=== PATIENT | female | born 1935 | race Caucasian/White ===

== ENCOUNTER 2018-03-05 11:46 | Observation (INO) | payer MEDICARE, BC ==
[2018-03-05 12:24] LABS: #Basophils 0.1 thou/uL (0.0-0.2); #Eosinphils 0.4 thou/uL (0.0-0.7); #Lymphocytes 2.6 thou/uL (1.20-3.40); #Monocytes 0.5 thou/uL (0.11-0.59); #Neutrophils 3.9 thou/uL (1.40-6.50); %Basophils 0.9 % (0.0-1.0); %Lymphocytes 35.3 % (21.0-51.0); %Monocytes 6.2 % (0.0-10.0); %Neutrophils 52.6 % (42.0-75.0); Hemoglobin 15.6 g/dL (12.0-16.0); Mean Corpuscular Hemoglobin 31.5 pg (27.0-31.0); Mean Corpuscular Volume 92.5 fL (78.0-98.0); Mean Platelet Volume 7.7 fL (7.4-10.4); Platelet Count 203 thou/uL (130-400); RBC Distribution Width 12.3 % (11.5-14.5); Red Blood Cell (RBC) Count 4.95 mill/uL (4.20-5.40); White Blood Cell (WBC) Count 7.5 thou/uL (4.8-10.8)
[2018-03-05 12:49] LABS: ALT (SGPT) 16 U/L (8-55); AST (SGOT) 24 U/L (5-34); Albumin 4.2 g/dL (3.4-4.8); Alkaline Phosphatase 82 U/L (40-150); Anion Gap 14 mmol/L (10-20); BUN (Urea Nitrogen) 24 mg/dL (9.8-20.1); Bilirubin, Total 0.6 mg/dL (0.2-1.2); CK (CPK) 63 U/L (29-168); Calc. Creatinine Clearance 0 mL/min (70-130); Calcium 9.6 mg/dL (7.8-10.44); Carbon Dioxide 24 mmol/L (23-31); Chloride 107 mmol/L (98-107); Estimated GFR-MDRD 53; Globulin 3.6 g/dL (2.4-3.5); Glucose 109 mg/dL (83-110); Protein, Total 7.8 g/dL (6.0-8.3); Sodium 140 mmol/L (136-145); Troponin I Less than 0.010 ng/mL (< 0.028)
--- NOTE | 2018-03-05 13:12 | RAD ---
AP VIEW CHEST: Date: 03/05/18 INDICATION: History of chest pain. COMPARISON: PA and lateral chest dated 04/24/12. FINDINGS: Small focal eventration of the right hemidiaphragm. Mild cardiomegaly is stable. Vascular calcificati ons of aortic arch similar appearing. No definite pleural effusion or pneumothorax is evident. IMPRESSION: Stable cardiomegaly. No definite acute cardiopulmonary abnormality. POS: [facility]
[2018-03-05] MEDS ORDERED: Aspirin 325 MG TAB ONE (14:23)
[2018-03-05] MEDS ORDERED: Enoxaparin Sodium 100 MG/ML SYRINGE ONE (14:23)
--- NOTE | 2018-03-05 14:55 | PDOC.FPRHP ---
- History of Present Illness Chief Complaint: sent by PCP History of Present Illness: 82 yo F with HLD sent by PCP in [place]. Her doctor listened to her heart and got an EKG then told her to go to the hospital. Denies any chest pain or other pain at this time. Pt reports that she was admitted in [place] 1 week ago for chest sensation that felt "like indigestion." Pt reports being getting an EKG and stress test that all came back normal. She also described feeling bad at the store yesterday- she felt sweaty, nauseated, and tired so she decided to go home. She said she felt a chest "tightness" or "hollow feeling" yesterday and this morning. Pt admits to fatigue, occasional SOB, exercise intolerance, occasional constipation, and a diffuse feeling of weakness. She denied fevers/ chills, wt or appetite changes, recent illness, diarrhea. Pt reports having an irregular heart beat 2 or three years ago that was worked up, and that she saw a radio dispatcher at that time. Does not remember the doctors name. In the ED, she got an EKG which was normal. CBC and CMP wnl. Trops neg x 1. Admitted to tele obs. - Allergies/Adverse Reactions Allergies Allergy/AdvReac Type Severity Reaction Status Date / Time No Known Allergies Allergy Verified 03/05/18 15:26 - Home Medications Medication Instructions Recorded Confirmed Type Aspirin [Aspir-Low] 81 mg PO DAILY 03/05/18 03/05/18 History Lutein 20 mg PO DAILY 03/05/18 03/05/18 History Simvastatin [Zocor] 20 mg PO QPM 03/05/18 03/05/18 History Ubidecarenone [CoQ-10] 100 mg PO QPM 03/05/18 03/05/18 History Comments: Aspirin 81 mg PO once daily Lutein 20 mg PO once daily - for "halos" in her eyes Simvastatin 20 mg PO qhs -for HLD TNF 1 tablet daily qAM - for "halos" in her eyes Ubiquinone 1 ? PO daily qhs - for calf cramping with simvastatin pantoprazole 40 mg for GERD - History PMHx: HLD, GERD PSHx: cholecystectomy, bilat knee replacements FHx: Father of DE age 77, sister with DM, sister who of pancreatic cancer at age 77. Denies hx HTN. Social: 26 PY smoking hx, alcohol 1/month or less, denies drugs or other use. Says she used to live near [facility], and has three grown children. Denies ill contacts. - Review of Systems General: reports: fatigue. denies: fever/chills, weight/appetite/sleep changes , night sweats Eyes: denies: vision changes ENT: reports: nasal congestion, rhinorrhea Respiratory: reports: congestion, shortness of breath (occasional), exercise intolerance. denies: cough Cardiovascular: denies: chest pain, palpitation, edema, paroxysmal nocturnal dyspnea Gastrointestinal: reports: nausea, constipation (occasional). denies: vomiting , diarrhea, abdominal pain, GI bleeding Genitourinary: reports: incontinence (bladder). denies: dysuria, polyuria, discharge Skin: denies: rashes Musculoskeletal: reports: arthritis/arthralgias (fingers and neck). denies: pain Neurological: reports: weakness (overall feeling of being weaker than she used to be). denies: numbness, seizure Psychological: denies: anxiety, depression - Vital signs BP: 141/60 HR: 65 RR: 18 Tmax: 98.2 Pox: 99% on RA Wt: 122 kg - Physical Exam Constitutional: NAD, awake, alert and oriented, well developed HEENT: normocephalic and atraumatic, PERRLA, EOMI, conjunctiva clear, no scleral icterus, grossly normal hearing, MMM, oropharynx clear Neck: supple, no LAD Chest: no lesions Heart: normal S1/S2, no murmurs/rubs/gallops, pulses present, other (Regular rate, sometimes irregular rhythm (regularly irregular)) Lungs: CTAB, no respiratory distress, no wheezing, no retractions Abdomen: soft, non-tender, no masses/distention Musculoskeletal: normal structure, normal tone Skin: no rash/lesions Heme/Lymphatic: no unusual bruising or bleeding Psychiatric: normal mood and affect, good judgment and insight, intact recent and remote memory FMR H&P: Results - Labs Result Diagrams: 03/05/18 12:10 03/05/18 12:10 Lab results: WBC 7.5 thou/uL (4.8-10.8) 03/05/18 12:10 Hgb 15.6 g/dL (12.0-16.0) 03/05/18 12:10 Hct 45.8 % (36.0-47.0) 03/05/18 12:10 MCV 92.5 fL (78.0-98.0) 03/05/18 12:10 Plt Count 203 thou/uL (130-400) 03/05/18 12:10 Neutrophils % 52.6 % (42.0-75.0) 03/05/18 12:10 Sodium 140 mmol/L (136-145) 03/05/18 12:10 Potassium 5.0 mmol/L (3.5-5.1) 03/05/18 12:10 Chloride 107 mmol/L (98-107) 03/05/18 12:10 Carbon Dioxide 24 mmol/L (23-31) 03/05/18 12:10 BUN 24 mg/dL (9.8-20.1) H 03/05/18 12:10 Creatinine 1.00 mg/dL (0.6-1.1) 03/05/18 12:10 Glucose 109 mg/dL (83-110) 03/05/18 12:10 Calcium 9.6 mg/dL (7.8-10.44) 03/05/18 12:10 Total Bilirubin 0.6 mg/dL (0.2-1.2) 03/05/18 12:10 AST 24 U/L (5-34) 03/05/18 12:10 ALT 16 U/L (8-55) 03/05/18 12:10 Alkaline Phosphatase 82 U/L (40-150) 03/05/18 12:10 Creatine Kinase 63 U/L (29-168) 03/05/18 12:10 CK-MB (CK-2) 2.0 ng/mL (0-6.6) 03/05/18 12:10 B-Natriuretic Peptide 58.9 pg/mL (0-100) 03/05/18 12:10 Serum Total Protein 7.8 g/dL (6.0-8.3) 03/05/18 12:10 Albumin 4.2 g/dL (3.4-4.8) 03/05/18 12:10 - EKG Interpretation EKG: normal rate and rhythm, with PAC and PVC - Radiology Interpretation Chest x-ray Status: report reviewed by me (stable cardiomegaly. No acute cardiopulmonary abnormalities.) Additional comment: stable cardiomegaly, no acute cardiopulmonary abnormalities. FMR H&P: A/P - Problem List (1) GERD (gastroesophageal reflux disease) Current Visit: Yes Status: Acute Code(s): K21.9 - GASTRO-ESOPHAGEAL REFLUX DISEASE WITHOUT ESOPHAGITIS (2) HLD (hyperlipidemia) Current Visit: Yes Status: Acute Code(s): E78.5 - HYPERLIPIDEMIA, UNSPECIFIED - Plan Paroxysmal Atrial Fibrillation In triage tropx1 was negative, CBC and BMP were normal. CXR showed cardiomegaly , with no acute cardiopulmonary abnormalities. EKG in the ED was normal, showing no afib or aflutter. [id number] score 3, indicating moderate to high need for anti-coagulation. HASBLED score 2, indicating moderate risk for major bleeding. She is able to perform all ADLs on her own, and no hx of falls. -Obtain records from [facility] for cardiac work up done last week -Admit to telemetry obs. Consult cardiology, appreciate recs. HLD -Continue simvastatin GERD -Continue on protonix Code status: full code FMR H&P: Upper Level - Pertinent history 82F with recent hospitalization for CP r/o ACS at [facility] in [place] approximately two weeks ago. Work up negative at that time including negative stress test. Seen by her PCP in [place] today and found to be in atrial fibrillation with a rate of 110 bpm. Asymptomatic at that time but sent to [facility] ER for triage and admission. She denies any CP, palpitations, lower extremity edema, dizziness, syncope. However, when questioned further she endorsed brief spells of NINO, diaphoresis, and light headedness that last for a couple minutes then resolve with rest. Never associated with chest pain. Patient does not have a radio dispatcher and is otherwise very healthy. ED: ASA 325mg, Lovenox 1mg/kg - Pertinent findings BP: 141/60 HR: 65 RR: 18 Tmax: 98.2 Pox: 99% on RA Wt: 122 kg Gen: A&Ox4; no acute distress HEENT: NC/AT; MMM CV: RRR; no murmurs Pulm: CTA-B Extremities: no lower extremity edema; pedal pulses intact Psych: appropriate EKG at ED: NSR with occasional PVCs Troponin negative x 1 - Plan Date/Time: 03/05/18 8336 1. Paroxysmal Afib: confirmed EKG from PCP office showing afib with a rate of 110, asymptomatic at that time. Patient received no medication and was found to be in NSR upon presentation to [facility]. Will request records from [facility] for recent cardiac workup. Trend troponins with repeat EKGs. Initial troponin was negative. CBC and CMP normal. BNP appropriate. [id number] score of 3 indicating need for anticoagulation. Patient with no history of falls and no gross contraindication to anticoagulation. Likely consult Cardiology for further recommendations pending review of outside records. 2. HLD: continue simvastatin, anticipate FLP checked in [place]. No need for repeat at this time. 3. GERD: continue PPI Code status: full I, Noah Amanda, have evaluated this patient and agree with findings/plan as outlined by senior internet sales consultant resident. Pertinent changes/additions are listed here. Attending Addendum - Attending Addendum Date/Time: 03/05/18 [id number] I personally evaluated the patient and discussed the management with Dr. Chad Benson I agree with the History, Examination, Assessment and Plan documented above with any addition or exceptions noted below- Briefly this is a 82 yo F with HLD sent by PCP due to irregular heart rate on auscultation and EKG showed A-fib. Denies any chest pain or other pain at this time. Recently hospitalized in [place] due to chest pain and had stres test which was negative per patient and told it was GERD. She also described feeling bad at the store yesterday- she felt sweaty, nauseated, and tired so she decided to go home. She said she felt a chest "tightness" or "hollow feeling" yesterday and this morning. PMH/PSH /All/Meds reviewed and agree with resident's documentation. Afebrile VSS. Exam repeated by me and agree with resident's findings. EKG ([place])- A-fib/ flutter with RVR. EKG- ()- NSR. Troponin- negative x 2. A/P: 1) Paroxysmal A- fib/flutter- continue anticoagulation; currently in NSR; continue to monitor. Will obtain echo.
[2018-03-05 15:32] VITALS: BMI 40.8
[2018-03-05 16:06] LABS: Troponin I 0.015 ng/mL (< 0.028)
[2018-03-05] MEDS ORDERED: Enoxaparin Sodium 40 MG/0.4 ML SYRINGE SC SCH (16:15)
[2018-03-05 19:20] LABS: Troponin I Less than 0.010 ng/mL (< 0.028)
[2018-03-05] MEDS: Ubidecarenone 50 MG CAP PO SCH (20:35)
[2018-03-05] MEDS: Famotidine 20 MG TAB PO SCH (20:35)
[2018-03-05] MEDS: Simvastatin 20 MG TAB PO SCH (20:35)
--- NOTE | 2018-03-06 06:15 | PDOC.FM ---
- Subjective Subjective: 82 yo F with new onset paroxysmal Afib. No complaints overnight, pt remained in sinus rhythm overnight. [facility] - Objective Vital Signs & Weight: Vital Signs (12 hours) Temp Pulse Resp BP Pulse Ox 03/06/18 04:14 97.4 F L 65 16 131/59 L 95 03/05/18 19:55 97.6 F 75 16 03/05/18 19:37 97.6 F 75 16 117/63 93 L 03/05/18 19:30 93 L Weight Weight 120.746 kg I&O: 03/04/18 03/05/18 03/06/18 06:59 06:59 06:59 Intake Total 830 Balance 830 Result Diagrams: 03/05/18 12:10 03/05/18 12:10 <Katey Benson - Last Filed: 03/06/18 08:23> - Objective Vital Signs & Weight: Vital Signs (12 hours) Temp Pulse Resp BP Pulse Ox 03/06/18 15:25 98.0 F 71 16 111/59 L 92 L 03/06/18 11:20 99 F 69 18 128/60 92 L 03/06/18 08:00 98.3 F 71 20 03/06/18 07:23 98.3 F 71 20 116/58 L 94 L Weight Weight 120.746 kg I&O: 03/05/18 03/06/18 03/07/18 06:59 06:59 06:59 Intake Total 830 Balance 830 Result Diagrams: 03/05/18 12:10 03/05/18 12:10 <Parag Meyers - Last Filed: 03/06/18 17:06> Phys Exam - Physical Examination Constitutional: NAD Respiratory: no wheezing, no rales, no rhonchi, clear to auscultation bilateral Cardiovascular: RRR, no significant murmur, no rub Gastrointestinal: soft, non-tender Musculoskeletal: no edema Psychiatric: normal affect, A&O x 3 <Katey Benson - Last Filed: 03/06/18 08:23> Dx/Plan (1) GERD (gastroesophageal reflux disease) Code(s): K21.9 - GASTRO-ESOPHAGEAL REFLUX DISEASE WITHOUT ESOPHAGITIS Status: Acute (2) HLD (hyperlipidemia) Code(s): E78.5 - HYPERLIPIDEMIA, UNSPECIFIED Status: Acute (3) Paroxysmal atrial fibrillation Code(s): I48.0 - PAROXYSMAL ATRIAL FIBRILLATION Status: Acute - Plan Plan: 1. Paroxysmal Afib: confirmed EKG from PCP office showing afib with a rate of 110, asymptomatic at that time. Patient received no medication and was found to be in NSR upon presentation to [facility]. Will request records from [facility] for recent cardiac workup. Trend troponins with repeat EKGs. CBC and CMP normal. BNP appropriate. [id number] score of 3 indicating need for anticoagulation. Patient with no history of falls and no gross contraindication to anticoagulation. Consult Cardiology for further recommendations pending review of outside records. -Admitted in Tele Obs, Remained in sinus overnight, Trop neg x3, CK nl. -ECHO today -Consult cardiology -Awaiting records from [facility] in [place] 2. HLD: continue simvastatin, anticipate FLP checked in [place]. No need for repeat at this time. 3. GERD: continue PPI Code status: full <Katey Benson - Last Filed: 03/06/18 08:23> Attending Addendum - Attending Addendum Date/Time: 03/06/18 1702 I personally evaluated the patient and discussed the management with Dr. Chad Benson. I agree with the History, Examination, Assessment and Plan documented above with any addition or exceptions noted below. She feels well. Denies CP, dyspnea or palpitations. Lungs: CTA, Cor: RRR, no murmur. No edema. Monitor shows NSR Rate 87. Has been started on Apixaban and Metoprol Succinate by Dr. Collins. Echocardiogram has been taken, results pending. Possible discharge if ECHO ok. MD Jacinto. <Parag Meyers - Last Filed: 03/06/18 17:06>
[2018-03-06] MEDS: Famotidine 20 MG TAB PO SCH ×2 (09:23→20:28)
[2018-03-06] MEDS: Aspirin 81 mg Enteric Coated Tablet PO SCH (09:23)
[2018-03-06] MEDS ORDERED: Enoxaparin Sodium 120 MG/0.8 ML SYRINGE SC SCH (10:30)
[2018-03-06 17:05] LABS: Hemoglobin 14.9 g/dL (12.0-16.0); Platelet Count 192 thou/uL (130-400)
[2018-03-06] MEDS: Apixaban 5 MG TAB PO SCH (20:28)
[2018-03-06] MEDS: Simvastatin 20 MG TAB PO SCH (20:28)
[2018-03-06] MEDS: Ubidecarenone 50 MG CAP PO SCH (20:29)
--- NOTE | 2018-03-07 05:39 | PDOC.FM ---
- Subjective Subjective: 82 yo F here for paroxysmal afib. Cardiology saw yesterday, added apixiban and metoprolol. Pt did well overnight with no complaints. - Objective Vital Signs & Weight: Vital Signs (12 hours) Temp Pulse Resp BP BP Pulse Ox 03/07/18 04:01 97.4 F L 65 18 125/68 95 03/06/18 20:00 98.2 F 62 20 03/06/18 19:09 98.2 F 62 20 141/61 H 94 L Weight Weight 120.746 kg I&O: 03/05/18 03/06/18 03/07/18 06:59 06:59 06:59 Intake Total 830 1030 Balance 830 1030 Result Diagrams: 03/06/18 16:55 03/06/18 16:55 <Katey Benson - Last Filed: 03/07/18 07:47> - Objective Vital Signs & Weight: Vital Signs (12 hours) Temp Pulse Resp BP Pulse Ox 03/07/18 11:00 97.4 F L 63 18 106/66 91 L 03/07/18 07:47 97.4 F L 65 18 03/07/18 07:29 97.7 F 61 18 124/59 L 93 L Weight Weight 120.746 kg I&O: 03/06/18 03/07/18 03/08/18 06:59 06:59 06:59 Intake Total 830 1030 Balance 830 1030 Result Diagrams: 03/06/18 16:55 03/06/18 16:55 <Parag Meyers - Last Filed: 03/07/18 17:05> Phys Exam - Physical Examination Constitutional: NAD (sleeping on exam) Respiratory: no wheezing, no rales, no rhonchi, clear to auscultation bilateral Cardiovascular: RRR, no significant murmur, no rub Gastrointestinal: soft Musculoskeletal: no edema, pulses present <Katey Benson - Last Filed: 03/07/18 07:47> Dx/Plan (1) GERD (gastroesophageal reflux disease) Code(s): K21.9 - GASTRO-ESOPHAGEAL REFLUX DISEASE WITHOUT ESOPHAGITIS Status: Acute (2) HLD (hyperlipidemia) Code(s): E78.5 - HYPERLIPIDEMIA, UNSPECIFIED Status: Acute (3) Paroxysmal atrial fibrillation Code(s): I48.0 - PAROXYSMAL ATRIAL FIBRILLATION Status: Acute - Plan Plan: 1. Paroxysmal Afib: confirmed EKG from PCP office showing afib with a rate of 110, asymptomatic at that time. Patient received no medication and was found to be in NSR upon presentation to [facility]. Will request records from [facility] for recent cardiac workup. Trend troponins with repeat EKGs. CBC and CMP normal. BNP appropriate. [id number] score of 3 indicating need for anticoagulation. Patient with no history of falls and no gross contraindication to anticoagulation. Consult Cardiology for further recommendations pending. -Admitted in Tele Obs, Trop neg x3, CK nl. -Records from [facility]: nl EKG, negative stress test -ECHO: pending -Consult cardiology, appreciate recs. -apixiban 5 mg and metoprolol succinate 50 mg added 03/06. -No more episodes of afib/flutter since starting metoprolol. Sinus overnight. -TSH: normal at 3.65 2. HLD: continue simvastatin. 3. GERD: continue PPI Code status: full code Diet: Heart Healthy <Katey Benson - Last Filed: 03/07/18 07:47> Attending Addendum - Attending Addendum Date/Time: 03/07/18 9412 I personally evaluated the patient and discussed the management with Dr. Chad Benson. I agree with the History, Examination, Assessment and Plan documented above with any addition or exceptions noted below. Ms. Mcguire feels well and ready to go home. Lungs: CTA, Cor: RRR. Abd: WNL. Ext : No edema. Has remained in NSR overnight. Echo is resulted. WNL with mild Left atrial enlargement. EF 50-55% Mild TR. Stable for discharge to follow up with her PCP at the [facility]. Home on Metoprolol Succinate 50 mg daily, and Apixaban 5 mg BiD, Crestor 20 mg daily, . Symptoms for which to seek medical attention discussed. [facility] <Parag Meyers - Last Filed: 03/07/18 17:05>
[2018-03-07 07:57] VITALS: TEMP 97.4
[2018-03-07] MEDS: Apixaban 5 MG TAB PO SCH (10:02)
[2018-03-07] MEDS: Aspirin 81 mg Enteric Coated Tablet PO SCH (10:02)
[2018-03-07] MEDS: Famotidine 20 MG TAB PO SCH (10:02)
[2018-03-07 11:52] VITALS: BP 106/66
[2018-03-07] MEDS: (Lutein [Lutein] 20 MG) PO SCH ×2 (12:12→12:18)
--- NOTE | 2018-03-07 22:27 | DIS-2 ---
DATE OF ADMISSION: 03/05/2018 DATE OF DISCHARGE: 03/07/2008 RESIDENT: Katey Benson MD ADMITTING ATTENDING: Parag Meyers M.D. DISCHARGE ATTENDING: Parag Meyers M.D. CONSULTS: Cardiology, 03/06/2018 Dr. Collins. PROCEDURES: Chest x-ray on 03/05/2018, impression stable cardiomegaly. No definite acute cardiopulmonary abnormality. Echocardiogram on 03/07/2018. SUMMARY: Technically limited study. Ejection fraction is visually estimated at 50%-55%. Mildly dilated left atrium. Left ventricular size is normal. Mild tricuspid regurgitation. PRIMARY DIAGNOSIS: Paroxysmal atrial fibrillation. SECONDARY DIAGNOSES: 1. Hyperlipidemia. 2. Gastroesophageal reflux disease. DISCHARGE MEDICATIONS: 1. CoQ10 100 mg capsule p.o. q.p.m. 2. Simvastatin 20 mg tabs p.o. q.p.m. 3. Lutein 20 mg p.o. daily. 5. Aspirin 81 mg p.o. daily. 6. Apixaban 5 mg p.o. b.i.d. 7. Metoprolol succinate 50 mg p.o. daily. DISCONTINUED MEDICATIONS: None. HISTORY OF PRESENT ILLNESS AND HOSPITAL COURSE: The patient is an 82-year-old female with hyperlipidemia, sent by PCP in [place]. Her PCP got an EKG in clinic, which showed atrial fibrillation changes and she was sent to the hospital. Patient denied any chest pain or any other pain. She did describe feeling "bad" at the store yesterday: she felt sweaty, nauseated and tired and so she decided to go home. She said she also has felt chest tightness or "hollow" feeling in her chest yesterday and this morning. Patient admitted to fatigue, occasional shortness of breath, exercise intolerance, occasional constipation and a diffuse feeling of weakness. She denied fever, chills, weight or appetite changes, recent illness or diarrhea. The patient reported a recent admission to [facility] 1 week prior for a cardiac workup for a chest sensation that felt like indigestion. Patient reported that an EKG and a stress test at that time that came back normal. Patient reports having an irregular heartbeat "2-3 years ago" that was worked up and at that time she saw a car bracer. She did not remember the doctor's name. In the ED, an EKG was normal. The EKG from her PCP's office was requested to compare, and that EKG showed atrial fibrillation. Records from [facility] were requested. Her CBC and CMP were within normal limits. Her trops were negative. She was admitted to telemetry obs. Her records at [facility] showed a normal EKG and a negative stress test. Cardiology was consulted and she was given apixaban 5 mg and metoprolol succinate 50 mg. After she started the metoprolol, she had no more episodes of atrial fibrillation or flutter. She remained in sinus. Her TSH was also found to be normal at 3.65. She was discharged to home. DISPOSITION: Stable. DISCHARGE INSTRUCTIONS: 1. Location: Home. 2. Diet: Heart healthy. 3. Activity: As tolerated. 4. Followup: Follow up with car bracer in 1 week. Follow up with PCP in 1- 2 weeks. BONNIE
--- NOTE | 2018-03-07 23:32 | EKG ---
Test Reason : Blood Pressure : / mmHG Vent. Rate : 073 BPM Atrial Rate : 073 BPM P-R Int : 164 ms QRS Dur : 092 ms QT Int : 394 ms P-R-T Axes : 051 -13 054 degrees QTc Int : 434 ms Sinus rhythm with occasional Premature ventricular complexes and Premature atrial complexes Inferior infarct , age undetermined Abnormal ECG Confirmed by NICOLE YANCEY, DAVIDE Dill ([id number]), material expeditor STEVEN GIBBONS ([id number]) on 03/07/2018 11:32:09 PM Referred By: Confirmed By:DAVIDE RIVERA MD
== END 2018-03-07 13:09 | disposition home or self-care (01) ==
LOC: ERS 11:46 → 2SW 13:30
PROVIDERS: ADMIT Family Medicine; ATTEND Family Medicine
DX: I48.0 Paroxysmal atrial fibrillation (principal); E78.5 Hyperlipidemia, unspecified; K21.9 Gastro-esophageal reflux disease without esophagitis; Z79.82 Long term (current) use of aspirin; Z79.899 Other long term (current) drug therapy
CPT/HCPCS: 71045; 82550; 82553; 82565; 83880; 84484 ×2; 85014; 85018; 85049; 93005; 93306; 96372 ×2; 99285; G0378; 36415; 80053; 84443; 85025; J1650

== ENCOUNTER 2019-08-25 11:34 | Inpatient (IN) | payer MEDICARE, BC ==
--- NOTE | 2019-08-25 12:20 | RAD ---
PORTABLE CHEST: Date: 08/25/2019 PROVIDED CLINICAL HISTORY: Chest pain. FINDINGS: Comparison with 03/05/2018. Cardiac and mediastinal silhouette is within normal limits. Vascular calcification involves the aorti c arch. No focal consolidation, pleural fluid, or pneumothorax apparent. IMPRESSION: No evidence for an acute cardiopulmonary process. POS: [facility]
[2019-08-25 12:21] LABS: #Eosinphils 0.3 thou/uL (0.0-0.7); #Lymphocytes 0.9 thou/uL (1.20-3.40); %Basophils 0.1 % (0.0-1.0); %Eosinophils 1.4 % (0.0-10.0); %Lymphocytes 5.2 % (21.0-51.0); %Monocytes 5.4 % (0.0-10.0); Hemoglobin 16.1 g/dL (12.0-16.0); Mean Corpuscular HGB CONC 31.7 g/dL (32.0-36.0); Mean Corpuscular Hemoglobin 29.9 pg (27.0-31.0); Mean Corpuscular Volume 94.3 fL (78.0-98.0); Mean Platelet Volume 7.9 fL (7.4-10.4); Platelet Count 182 thou/uL (130-400); RBC Distribution Width 13.2 % (11.5-14.5); White Blood Cell (WBC) Count 18.2 thou/uL (4.8-10.8)
[2019-08-25 12:27] LABS: INR-International Normal Ratio 1.6; PTT 32.5 SEC (22.9-36.1); Prothrombin Time 18.7 SEC (12.0-14.7)
[2019-08-25] MEDS ORDERED: Diltiazem HCl 125 MG, Admixture Fee 1 EACH in Sodium Chloride 0.9% 100 ML IVPB SCH (12:30)
[2019-08-25 12:46] LABS: ALT (SGPT) 26 U/L (8-55); AST (SGOT) 15 U/L (5-34); Albumin 3.2 g/dL (3.4-4.8); Alkaline Phosphatase 74 U/L (40-110); Anion Gap 14 mmol/L (10-20); BUN (Urea Nitrogen) 26 mg/dL (9.8-20.1); Bilirubin, Total 1.5 mg/dL (0.2-1.2); Calc. Creatinine Clearance 0 mL/min (70-130); Calcium 8.5 mg/dL (7.8-10.44); Carbon Dioxide 20 mmol/L (23-31); Chloride 103 mmol/L (98-107); Estimated GFR-MDRD 37; Globulin 2.9 g/dL (2.4-3.5); Glucose 120 mg/dL (83-110); Potassium 4.1 mmol/L (3.5-5.1); Protein, Total 6.1 g/dL (6.0-8.3); Sodium 133 mmol/L (136-145)
[2019-08-25] MEDS ORDERED: Bisacodyl 5 MG TAB PO PRN (13:53)
[2019-08-25] MEDS ORDERED: HYDROcodone/Acetaminophen 5/325 mg Tablet PO PRN (13:53)
[2019-08-25] MEDS ORDERED: Ondansetron PF 4 MG/2 ML Vial IVP PRN (13:53)
[2019-08-25] MEDS ORDERED: HYDROcodone/Acetaminophen 7.5/325 mg Tablet PO PRN (13:53)
[2019-08-25] MEDS ORDERED: Calcium Carbonate 500 MG ChewTAB PO PRN (13:53)
[2019-08-25] MEDS ORDERED: Senokot S 8.6-50 MG TAB PO PRN (13:53)
[2019-08-25] MEDS ORDERED: Ondansetron ODT 4 MG TAB PO PRN (13:53)
[2019-08-25] MEDS ORDERED: Acetaminophen 325 MG TAB PO PRN (13:53)
[2019-08-25 16:33] LABS: Bacteria/HPF 2+ HPF (None Seen); Bilirubin Negative (Negative); Blood, Urine 2+ (Negative); Clarity Turbid (Clear); Glucose, Urine (Dipstick) Normal (Negative); Leukocyte 500 Leu/uL (Negative); Nitrite Negative (Negative); Protein, Urine (Dipstick) 70 mg/dL (Neg-Trace); RBC/HPF 21-50 HPF (0-3); Transitional Epithelial 0-3 HPF (None Seen); Urobilinogen 3 mg/dL (Less than 2); WBC/HPF Greater than 50 HPF (0-3)
[2019-08-25 17:17] LABS: Troponin I 0.065 ng/mL (< 0.028)
[2019-08-25] MEDS ORDERED: diphenhydrAMINE 25 MG CAP PO PRN (18:39)
[2019-08-25] MEDS ORDERED: Melatonin 3 MG TAB PO PRN (18:39)
[2019-08-25] MEDS ORDERED: Docusate 100 MG CAP PO PRN (18:39)
[2019-08-25] MEDS ORDERED: Labetalol HCl 100 MG/20 ML VIAL SLOW IVP PRN (18:39)
--- NOTE | 2019-08-25 18:43 | PDOC.HHP ---
Hospitalist HPI - History of Present Illness Sepsis History of Present Illness: 84-year-old female with past medical history of atrial fibrillation, hypertension, hyperlipidemia and osteoarthritis presents with severe sepsis. Patient with multiple complaints including general malaise, cough with productive sputum, diarrhea, and urinary frequency. Patient was recently hospitalized in [place] where she was on vacation and she was diagnosed with RSV virus and urinary tract infection. Patient was stabilized and sent home from the hospital only a few days ago. Since then patient was sent home on oral antibiotics however she has forgotten to take these antibiotics. Patient with urine analysis that again demonstrates acute urinary tract infection. Patient identified to have atrial fibrillation with rapid ventricular response and initially require diltiazem drip, this drip was titrated off still in the emergency department and the patient heart rate varying between 80 and 113 bpm off the drip. Patient has been compliant on her regular cardiac medications and she is able to tell me she took her Eliquis and diltiazem this a.m. Patient's family at bedside are able to aid in history in a state that she was confused this a.m. however this has resolved since arrival to the hospital. Patient is alert to self, she knows she is in hospital, she knows the year, and she knows the situation. Patient admitted to medical unit telemetry for close management. Cardiology consultation requested. Hospitalist ROS - Review of Systems All other systems reviewed; all pertinent +/- noted in HPI/Subj Hospitalist History - Past Medical History Source: patient, family, old records Cardiac: reports: AFIB, HTN, Hyperlipidemia Pulmonary: reports: high cholesterol, hypertension Renal/: reports: UTI - Past Surgical History Past Surgical History: reports: Other - Family History Family History: reports: hypertension - Social History Smoking Status: Unknown if ever smoked Alcohol: reports: None Drugs: reports: none Living Situation: With Family Domestic Violence: Negative Activity level: independent ambulation - Exam General Appearance: NAD, awake alert Eye: PERRL ENT: normocephalic atraumatic, moist mucosa Neck: supple, symmetric, no lymphadenopathy Heart: no murmur, no gallops, no rubs, irregular Respiratory: CTAB, no wheezes, no rales, no ronchi Gastrointestinal: soft, non-tender, no guarding, no rigidity Extremities: 1+ LE edema Skin: no lesions, no rashes Neurological: cranial nerve grossly intact, no focal deficits Musculoskeletal: generalized weakness Psychiatric: normal affect, normal behavior, A&O x 3 Hospitalist Results - Labs Result Diagrams: 08/25/19 12:06 08/25/19 12:06 Lab results: WBC 18.2 thou/uL (4.8-10.8) H 08/25/19 12:06 Hgb 16.1 g/dL (12.0-16.0) H 08/25/19 12:06 Hct 50.9 % (36.0-47.0) H 08/25/19 12:06 MCV 94.3 fL (78.0-98.0) 08/25/19 12:06 Plt Count 182 thou/uL (130-400) 08/25/19 12:06 Neutrophils % 88.0 % (42.0-75.0) H 08/25/19 12:06 Sodium 133 mmol/L (136-145) L 08/25/19 12:06 Potassium 4.1 mmol/L (3.5-5.1) 08/25/19 12:06 Chloride 103 mmol/L (98-107) 08/25/19 12:06 Carbon Dioxide 20 mmol/L (23-31) L 08/25/19 12:06 BUN 26 mg/dL (9.8-20.1) H 08/25/19 12:06 Creatinine 1.35 mg/dL (0.6-1.1) H 08/25/19 12:06 Glucose 120 mg/dL (83-110) H 08/25/19 12:06 Calcium 8.5 mg/dL (7.8-10.44) 08/25/19 12:06 Total Bilirubin 1.5 mg/dL (0.2-1.2) H 08/25/19 12:06 AST 15 U/L (5-34) 08/25/19 12:06 ALT 26 U/L (8-55) 08/25/19 12:06 Alkaline Phosphatase 74 U/L (40-110) 08/25/19 12:06 Troponin I 0.065 ng/mL (< 0.028) H 08/25/19 16:49 Serum Total Protein 6.1 g/dL (6.0-8.3) 08/25/19 12:06 Albumin 3.2 g/dL (3.4-4.8) L 08/25/19 12:06 Urine Ketones Negative mg/dL (Negative) 08/25/19 16:17 Urine Blood 2+ (Negative) A 08/25/19 16:17 Urine Nitrite Negative (Negative) 08/25/19 16:17 Ur Leukocyte Esterase 500 Martha/uL (Negative) A 08/25/19 16:17 Urine RBC 21-50 HPF (0-3) A 08/25/19 16:17 Urine WBC Greater than 50 HPF (0-3) A 08/25/19 16:17 Ur Squamous Epith Cells 7-10 HPF (0-3) A 08/25/19 16:17 Urine Bacteria 2+ HPF (None Seen) A 08/25/19 16:17 - Radiology Interpretation Chest x-ray Status: image reviewed by ga Hospitalist H&P A/P - Problem (1) Severe sepsis Code(s): A41.9 - SEPSIS, UNSPECIFIED ORGANISM; R65.20 - SEVERE SEPSIS WITHOUT SEPTIC SHOCK Status: Acute (2) Atrial fibrillation with RVR Code(s): I48.91 - UNSPECIFIED ATRIAL FIBRILLATION Status: Acute (3) Cough Code(s): R05 - COUGH Status: Acute (4) Shortness of breath Code(s): R06.02 - SHORTNESS OF BREATH Status: Acute (5) UTI (urinary tract infection) Status: Acute (6) HTN (hypertension) Code(s): I10 - ESSENTIAL (PRIMARY) HYPERTENSION Status: Acute (7) GERD (gastroesophageal reflux disease) Code(s): K21.9 - GASTRO-ESOPHAGEAL REFLUX DISEASE WITHOUT ESOPHAGITIS Status: Acute (8) HLD (hyperlipidemia) Code(s): E78.5 - HYPERLIPIDEMIA, UNSPECIFIED Status: Acute (9) Paroxysmal atrial fibrillation Code(s): I48.0 - PAROXYSMAL ATRIAL FIBRILLATION Status: Acute - Plan Plan: Plan: admit to medical unit with telemetry diltiazem drip as needed to maintain heart rate less than 110 bpm oral anticoagulation with Eliquis blood pressure normalized with IV fluid resuscitation severe sepsis diagnosed on admission urinary tract infection, failed outpatient medical therapy start IV antibiotics urinary analysis with urinary tract infection urine culture, de-escalate to culture and sensitivity as able breathing treatments as needed for wheezing or shortness of breath recent RSV infection supplemental oxygen to maintain O2 saturation greater than 88% continue other home medications as able blood sugar control blood pressure control G.I. prophylaxis DVT prophylaxis
[2019-08-25 20:20] VITALS: BMI 41.2
[2019-08-25] MEDS: cefTRIAXone\\ROCEPHIN 2 GM in Sodium Chloride 0.9% 100 ML IVPB SCH (20:54)
[2019-08-25] MEDS: Atorvastatin Calcium 10 MG TAB PO SCH (20:55)
[2019-08-25] MEDS: Apixaban 5 MG TAB PO SCH (20:55)
[2019-08-25] MEDS: Ubidecarenone 50 MG CAP PO SCH (20:55)
[2019-08-25] MEDS ORDERED: Famotidine/PF 20 mg/2ml Vial SLOW IVP SCH (21:00)
[2019-08-25 21:05] LABS: Troponin I 0.028 ng/mL (< 0.028)
[2019-08-26 05:11] LABS: Anion Gap 15 mmol/L (10-20); BUN (Urea Nitrogen) 29 mg/dL (9.8-20.1); Calc. Creatinine Clearance 71 mL/min (70-130); Calcium 8.2 mg/dL (7.8-10.44); Carbon Dioxide 19 mmol/L (23-31); Chloride 104 mmol/L (98-107); Estimated GFR-MDRD 45; Glucose 114 mg/dL (83-110); Potassium 3.7 mmol/L (3.5-5.1); Sodium 134 mmol/L (136-145)
[2019-08-26 05:19] LABS: Hemoglobin 15.1 g/dL (12.0-16.0); Mean Corpuscular HGB CONC 32.8 g/dL (32.0-36.0); Mean Corpuscular Hemoglobin 31.1 pg (27.0-31.0); Mean Corpuscular Volume 94.8 fL (78.0-98.0); Mean Platelet Volume 8.9 fL (7.4-10.4); Platelet Count 178 thou/uL (130-400); RBC Distribution Width 13.2 % (11.5-14.5); Red Blood Cell (RBC) Count 4.85 mill/uL (4.20-5.40); White Blood Cell (WBC) Count 29.7 thou/uL (4.8-10.8)
[2019-08-26 05:54] LABS: Band 22 % (5-11); Eosinophils 2 % (0-10); Lymphocytes 3 % (21-51); MDiff Complete? YES; Neutrophil 73 % (42-75)
[2019-08-26] MEDS ORDERED: LUTEIN 20 MG PO SCH (09:00)
--- NOTE | 2019-08-26 09:02 | CT ---
CT OF THE ABDOMEN AND PELVIS WITHOUT IV CONTRAST INDICATION: History of diarrhea COMPARISON: None FINDINGS: This examination is limited for the evaluation of solid organs and vascular structures due to the lac k of intravenous contrast. ABDOMEN: Lung bases: Clear Liver: There are multiple suspected cysts involving the liver. The largest measures 5.8 cm within the lateral left hepatic lobe. Gallbladder: Surgically absent. There is a 9.5 mm calcification seen adjacent to the jose hepatis w hich may reflect a dystrophic calcification. This does not appear to be a calcification in the region of the common bile duct. Pancreas: Normal. Adrenal glands: Normal. Spleen: Normal. Kidneys and ureters: There are bilateral renal cysts. The largest is seen involving the superior pole left kidney measuring 7.6 cm. There is an additional 2.6 m cyst involving inferior pole of the left kidney. There is a 1.6 cm cyst involving the upper pole of the right kidney. No renal or uretera l calculus is evident. No hydronephrosis is demonstrated. Vasculature: Moderate to severe vasculature Lymph nodes:No lymphadenopathy. Free fluid in abdomen:No free fluid is evident. PELVIS: Small and large bowel: Colonic diverticulosis. There is a left indirect hernia containing portions of the sigmoid colon which is unobstructed. Appendix:Normal Bladder: Normal. Rectal and perirectal soft tissues:Normal. Reproductive structures: Normal. Free fluid in pelvis: No free fluid is evident. Lymphadenopathy pelvis: No lymphadenopathy is evident. Osseous structures: There is a prominent hemangioma within the L2 vertebral level. There is scattered degenerative and osteoarthritic change present. Soft tissues:Normal. IMPRESSION: 1. No renal or ureteral calculus. 2. Bilateral renal cysts and hepatic cysts. 3. Left sided indirect hernia containing unobstructed loop of sigmoid colon.
[2019-08-26] MEDS: Aspirin 81 mg Enteric Coated Tablet PO SCH (09:37)
[2019-08-26] MEDS: Apixaban 5 MG TAB PO SCH ×2 (09:37→19:52)
[2019-08-26] MEDS: Loperamide HCl 2 MG CAP PO PRN ×2 (11:03→19:53)
--- NOTE | 2019-08-26 11:48 | PDOC.HOSPP ---
- Subjective Subjective: Seen and examined. Diarrhea persists, seated found to be negative. CT scan of the abdomen was performed please see full report for details. No acute intra- abdominal pathology. Patient overall states that she's feeling better. Chronic a fib persists, cardiology on case. - Objective Vital Signs & Weight: Vital Signs (12 hours) Temp Pulse Resp BP BP BP Pulse Ox 08/26/19 09:36 93 104/64 08/26/19 09:00 97.5 F L 93 16 104/64 08/26/19 04:48 98.5 F 97 18 122/82 94 L 08/26/19 01:00 100 109/63 Weight Weight 271 lb 6.4 oz I&O: 08/25/19 08/26/19 08/27/19 06:59 06:59 06:59 Output Total 620 Balance -620 Result Diagrams: 08/26/19 04:23 08/26/19 04:23 Radiology Reviewed by me: Yes Hospitalist ROS - Review of Systems All other systems reviewed; all pertinent +/- noted in HPI/Subj - Medication Medications: Active Medications Generic Name Dose Route Start Last Admin Trade Name Freq PRN Reason Stop Dose Admin Apixaban 5 mg 08/25/19 21:00 08/26/19 09:37 Eliquis PO 5 mg BID ANA PAULA Administration Aspirin 81 mg 08/26/19 09:00 08/26/19 09:37 Ecotrin PO 81 mg DAILY ANA PAULA Administration Atorvastatin Calcium 10 mg 08/25/19 21:00 08/25/19 20:55 Lipitor PO 10 mg HS ANA PAULA Administration Coenzyme Q10 100 mg 08/25/19 21:00 08/25/19 20:55 Coenzyme Q10 PO 100 mg QPM ANA PAULA Administration Diltiazem HCl 120 mg 08/26/19 09:00 08/26/19 09:36 Cardizem Cd PO 120 mg DAILY ANA PAULA Administration Ceftriaxone Sodium 2 gm/ 100 mls @ 200 mls/hr 08/25/19 20:00 08/25/19 20:54 Sodium Chloride IVPB 100 mls Q24HR ANA PAULA Administration Loperamide HCl 2 mg 08/25/19 13:53 08/26/19 11:03 Imodium PO 2 mg PRN PRN Administration Diarrhea/Loose Stools Metoprolol Succinate 50 mg 08/26/19 09:00 08/26/19 09:37 Toprol Xl PO 50 mg DAILY ANA PAULA Administration Sodium Chloride 10 ml 08/25/19 21:00 08/26/19 09:38 Flush - Normal Saline IVF 10 ml Q12HR ANA PAULA Administration - Exam General Appearance: NAD, awake alert Eye: anicteric sclera ENT: normocephalic atraumatic, moist mucosa Neck: supple, symmetric, no lymphadenopathy Heart: no murmur, no gallops, no rubs, irregular Respiratory: CTAB, no wheezes, no rales, no ronchi Gastrointestinal: soft, non-tender, non-distended, no guarding, no rigidity Extremities: 1+ LE edema Skin: no lesions, no rashes Neurological: cranial nerve grossly intact, no focal deficits Musculoskeletal: generalized weakness Psychiatric: normal affect, normal behavior, A&O x 3 Hosp A/P (1) Severe sepsis Code(s): A41.9 - SEPSIS, UNSPECIFIED ORGANISM; R65.20 - SEVERE SEPSIS WITHOUT SEPTIC SHOCK Status: Acute (2) Atrial fibrillation with RVR Code(s): I48.91 - UNSPECIFIED ATRIAL FIBRILLATION Status: Acute (3) Cough Code(s): R05 - COUGH Status: Acute (4) Shortness of breath Code(s): R06.02 - SHORTNESS OF BREATH Status: Acute (5) UTI (urinary tract infection) Status: Acute (6) HTN (hypertension) Code(s): I10 - ESSENTIAL (PRIMARY) HYPERTENSION Status: Acute (7) GERD (gastroesophageal reflux disease) Code(s): K21.9 - GASTRO-ESOPHAGEAL REFLUX DISEASE WITHOUT ESOPHAGITIS Status: Acute (8) HLD (hyperlipidemia) Code(s): E78.5 - HYPERLIPIDEMIA, UNSPECIFIED Status: Acute (9) Paroxysmal atrial fibrillation Code(s): I48.0 - PAROXYSMAL ATRIAL FIBRILLATION Status: Acute - Plan Plan: medical unit with telemetry cardiology consultation, recommendations a patient diltiazem drip as needed to maintain heart rate less than hundred and 10 bpm oral and coagulation with Eliquis severe sepsis diagnosed on admission urinary tract infection, failed outpatient medical therapy IV antibiotics urinary culture, de-escalate to culture and sensitivity as able breathing treatments as needed for wheezing and shortness of breath recent RSV infection diarrhea, stool studies negative C. diff negative CT scan of the abdomen and pelvis negative supplemental oxygen to maintain O2 saturation greater than 88% continue other home medications as able blood sugar control neckline blood pressure control G.I. prophylaxis DVT prophylaxis
--- NOTE | 2019-08-26 15:55 | CON ---
DATE OF CONSULTATION: 08/26/2019 INDICATION FOR CONSULTATION: An 84-year-old female with sepsis and urosepsis. She had a recent RSV respiratory virus. She also had some diarrhea and urinary tract infection. She presented at this time. She was seen in the doctor's outpatient clinic yesterday and almost passed out. She was disoriented. She was seen by me last in the office in April 2019, was doing okay at that time. She does have a history of atrial fibrillation and flutter. She has been relatively asymptomatic with her atrial fibrillation. She was visiting family in [place] over the holidays and the day after , she was admitted to the hospital with RSV and also had diarrhea at that time and was noted also to have urinary tract infection. She was treated with antibiotics and then released and was told to follow up in the clinic here as what she was doing yesterday when she went to the clinic and then was due to the fact that she was disoriented, almost fell, her primary care provider then had her admitted to the hospital. At this time, she denies any chest pain. She is feeling somewhat better. She has been on IV antibiotics and otherwise her cardiac status appears to be relatively stable at this time. She does have her atrial fibrillation, which is chronic and she has had some relatively high rates, but this has been fluctuating, but overall appears to be relatively stable. Would expect her certainly to have somewhat tachycardia with the sepsis, the urosepsis, and the RSV. PAST MEDICAL HISTORY: Significant for chronic atrial fibrillation and gastroesophageal reflux disease. She has had a cholecystectomy. She has had bilateral knee replacement. She has had a tonsillectomy and adenoidectomy. She has hyperlipidemia and gastroesophageal reflux disease. She does have some memory loss at times. MEDICATIONS: Her medications prior to admission included; 1. Eliquis 5 mg b.i.d. 2. Zocor 40 mg a day. 3. Lutein 20 mg capsules a day. 4. Coenzyme Q10 of 200 mg once a day. 5. Diltiazem/hydrochloride ER 120 mg tablets once a day. 6. Metoprolol 50 mg half a tablet daily. 7. Vitamin C. 8. Protonix 40 mg once a day. 9. Aspirin 81 mg a day. ALLERGIES: SHE HAS NO KNOWN DRUG ALLERGIES. REVIEW OF SYSTEMS: Only positive findings are she has had some mild confusion. She has also had some disorientation. She has had some diarrhea. She denies any urinary complaints and she has had some coughing, but she denies any significant shortness of breath except when she coughs. PHYSICAL EXAMINATION: GENERAL: Reveals a well-developed, well-nourished female, who is in no acute distress. She appears to be very oriented and alert at this time. VITAL SIGNS: Her blood pressure is 136/90 and respiratory rate 22. She is afebrile. Heart rates in the 90s to 115 and shows atrial fibrillation with rapid ventricular response. HEENT: Shows the head to be normocephalic and atraumatic. There were no bruits noted. CHEST: Actually clear to auscultation without any rales, rhonchi, or wheezing. CARDIOVASCULAR: Reveals an irregularly irregular rhythm. I do not hear an S1 and S2. She has no significant S3 or S4. There were no significant murmurs, heaves, thrills, bruits, or rubs. ABDOMEN: Shows some obesity with positive bowel sounds. No organomegaly or masses are noted. EXTREMITIES: Showed no clubbing, cyanosis, or edema. Peripheral pulses are present. NEUROLOGIC: She appears to be intact at this time. LABORATORY DATA: Shows a WBC of 29.7 with a hemoglobin of 15, hematocrit was 41, and platelet count 178,000. She had 22% bands. Potassium was 3.7, BUN was 29, creatinine 1.16, and blood sugar is 119. Cardiac enzymes are unremarkable. The peak troponin I was 0.065, decreased down to 0.028, on admission was 0.01. Urinalysis showed 2+ bacteria. At this time, cardiac status is stable. She does have atrial fibrillation. We will evaluate her medications here in the hospital and see if there is any other changes need to be initiated, but at this time, she is doing quite well. We will be more than happy to continue to follow the patient with you. IMPRESSION AND PLAN: 1. RSV, for which she is being treated here in the hospital. 2. Urinary tract infection. She is on antibiotics. 3. Diarrhea. It is unlikely that this is due to the antibiotics and she was having some diarrhea even prior to being admitted to the hospital in [place] and she spent three days in the hospital there prior to being discharged and this is why she was admitted on the day after [place] to the [facility] and she returned here. She did not have any antibiotics until now. She is having more IV antibiotics while in the hospital, but the diarrhea seems to be an ongoing problem. 4. Generalized weakness, which most likely is due to the overwhelming infection. Her family tells me that every fall or winter, she develops respiratory problems with allergies and then develops worsening of situation, which she usually ends up in some type of upper respiratory tract infection or even lower respiratory tract infection from a possible pneumonia. 5. Chronic atrial fibrillation, which has been ongoing. She is on Eliquis and aspirin. We will continue these medications. At this time, I do not have any other recommendations that we are continuing her medications and rate control of her atrial fibrillation with her IV diltiazem, which could be switched over to p.o. Job ID: [id number]
[2019-08-26] MEDS: Ubidecarenone 50 MG CAP PO SCH (19:52)
[2019-08-26] MEDS: Famotidine/PF 20 mg/2ml Vial SLOW IVP SCH (19:53)
[2019-08-26] MEDS: Atorvastatin Calcium 10 MG TAB PO SCH (19:53)
[2019-08-26] MEDS: cefTRIAXone\\ROCEPHIN 2 GM in Sodium Chloride 0.9% 100 ML IVPB SCH (20:00)
[2019-08-27] MEDS: Benzonatate 100 MG CAP PO PRN ×3 (00:05→20:31)
[2019-08-27 08:28] LABS: #Eosinphils 0.6 thou/uL (0.0-0.7); #Lymphocytes 1.2 thou/uL (1.20-3.40); #Monocytes 0.6 thou/uL (0.11-0.59); #Neutrophils 8.2 thou/uL (1.40-6.50); %Basophils 0.4 % (0.0-1.0); %Lymphocytes 10.9 % (21.0-51.0); %Monocytes 5.2 % (0.0-10.0); %Neutrophils 77.5 % (42.0-75.0); Hemoglobin 14.2 g/dL (12.0-16.0); Mean Corpuscular Hemoglobin 31.8 pg (27.0-31.0); Mean Corpuscular Volume 93.3 fL (78.0-98.0); Mean Platelet Volume 9.2 fL (7.4-10.4); Platelet Count 136 thou/uL (130-400); RBC Distribution Width 12.9 % (11.5-14.5); Red Blood Cell (RBC) Count 4.48 mill/uL (4.20-5.40); White Blood Cell (WBC) Count 10.5 thou/uL (4.8-10.8)
[2019-08-27] MEDS: Aspirin 81 mg Enteric Coated Tablet PO SCH (08:44)
[2019-08-27] MEDS: Apixaban 5 MG TAB PO SCH ×2 (08:44→20:28)
[2019-08-27 08:48] LABS: Anion Gap 11 mmol/L (10-20); BUN (Urea Nitrogen) 32 mg/dL (9.8-20.1); Calc. Creatinine Clearance 80 mL/min (70-130); Calcium 8.2 mg/dL (7.8-10.44); Carbon Dioxide 23 mmol/L (23-31); Chloride 102 mmol/L (98-107); Estimated GFR-MDRD 51; Glucose 96 mg/dL (83-110); Potassium 3.4 mmol/L (3.5-5.1); Sodium 133 mmol/L (136-145)
--- NOTE | 2019-08-27 11:41 | PDOC.CPN ---
- Subjective Date: 08/27/19 Time: 11:51 Interval history: The pt seen and examined. No overnight events. No cardiac complaints. - Objective Allergies/Adverse Reactions: Allergies Allergy/AdvReac Type Severity Reaction Status Date / Time No Known Allergies Allergy Verified 03/05/18 15:26 Visit Medications: Current Medications Acetaminophen (Tylenol) 650 mg PO Q4H PRN PRN Reason: Headache/Fever/Mild Pain (1-3) Hydrocodone Bitart/Acetaminophen ([place] 5/325) 1 tab PO Q4H PRN PRN Reason: Moderate Pain (4-6) Hydrocodone Bitart/Acetaminophen ([place]ion 7.5/325) 1 tab PO Q4H PRN PRN Reason: Moderate to Severe Pain (6-10) Albuterol/Ipratropium (Duoneb) 3 ml NEB Q5FM-BP PRN PRN Reason: SOB &/or Wheezing Apixaban (Eliquis) 5 mg PO BID [facility] Last Admin: 08/27/19 08:44 Dose: 5 mg Aspirin (Ecotrin) 81 mg PO DAILY [facility] Last Admin: 08/27/19 08:44 Dose: 81 mg Atorvastatin Calcium (Lipitor) 10 mg PO HS [facility] Last Admin: 08/26/19 19:53 Dose: 10 mg Benzonatate (Tessalon) 100 mg PO Q4H PRN PRN Reason: Cough Last Admin: 08/27/19 00:05 Dose: 100 mg Bisacodyl (Dulcolax) 10 mg PO DAILYPRN PRN PRN Reason: Constipation Calcium Carbonate (Tums) 1,000 mg PO Q4H PRN PRN Reason: Heartburn or Indigestion Coenzyme Q10 (Coenzyme Q10) 100 mg PO QPM [facility] Last Admin: 08/26/19 19:52 Dose: 100 mg Diltiazem HCl (Cardizem Cd) 120 mg PO DAILY [facility] Last Admin: 08/27/19 08:45 Dose: 120 mg Diphenhydramine HCl (Benadryl) 25 mg PO Q6H PRN PRN Reason: Itching & Insomnia Docusate Sodium (Colace) 100 mg PO BIDPRN PRN PRN Reason: Constipation Famotidine (Pepcid) 20 mg SLOW IVP QPM [facility] Last Admin: 08/26/19 19:53 Dose: 20 mg Ceftriaxone Sodium 2 gm/ (Sodium Chloride) 100 mls @ 200 mls/hr IVPB Q24HR [facility] Last Admin: 08/26/19 20:00 Dose: 100 mls Labetalol HCl (Normodyne) 10 mg SLOW IVP Q4H PRN PRN Reason: SBP Greater Than 180 Loperamide HCl (Imodium) 2 mg PO PRN PRN PRN Reason: Diarrhea/Loose Stools Last Admin: 08/26/19 19:53 Dose: 2 mg Melatonin (Melatonin) 3 mg PO HS PRN PRN Reason: Insomnia Metoprolol Succinate (Toprol Xl) 50 mg PO DAILY [facility] Last Admin: 08/27/19 08:45 Dose: 50 mg Ondansetron HCl (Zofran Odt) 4 mg PO Q6H PRN PRN Reason: Nausea/Vomiting Ondansetron HCl (Zofran) 4 mg IVP Q6H PRN PRN Reason: Nausea/Vomiting Potassium Chloride (K-Dur) 20 meq PO BID-[facility] Stop: 08/27/19 23:59 Senna/Docusate Sodium (Senokot S) 2 tab PO BIDPRN PRN PRN Reason: Constipation Sodium Chloride (Flush - Normal Saline) 10 ml IVF Q12HR [facility] Last Admin: 08/27/19 08:46 Dose: 10 ml Sodium Chloride (Flush - Normal Saline) 10 ml IVF PRN PRN PRN Reason: Saline Flush Vital Signs & Weight: Vital Signs Temp Pulse Pulse Pulse Resp BP BP 08/27/19 09:18 98 59 L 109/57 L 107/58 L 08/27/19 08:41 99.3 F 87 18 08/27/19 08:00 08/27/19 03:47 98.8 F 102 H 14 BP BP Pulse Ox Pulse Ox Pulse Ox 08/27/19 09:18 91 L 95 08/27/19 08:41 120/71 92 L 08/27/19 08:00 93 L 08/27/19 03:47 108/60 94 L Admit Weight 271 lb 6.4 oz Weight 271 lb 6.4 oz - Physical Exam General: alert & oriented x3 HEENT: mucus membranes moist Neck: supple neck Cardiac: irregularly regular Lungs: clear to auscultation Extremities: no edema - Labs Result Diagrams: 08/27/19 08:15 08/27/19 08:15 Troponin/CKMB Troponin I 0.028 ng/mL (< 0.028) 08/25/19 20:25 - Telemetry Supraventricular conduction: atrial fibrillation - Assessment/Plan Assessment/Plan: 1. Severe sepsis 2/2 RSV and UTI 2. Chronic Afib - well controlled with Diltiazem 120mg qd and Metoprolol 50mg qd ; On Eliquis 5mg BID 3. HTN - stable 4. HLD 5. Diarrhea - Cdiff negative; MAR reviewed Pt. seen and eval. by me. I agree withthe A/P by the [employer]. Cardiac status is stable. Continue present meds. Chest clear. Irreg/irreg. [id number]
[2019-08-27] MEDS ORDERED: Potassium Chloride 20 MEQ TAB PO SCH ×2 (12:00→17:00)
--- NOTE | 2019-08-27 12:30 | PDOC.HOSPP ---
- Subjective Subjective: Seen and examined. Patient clinically improving. Breathing comfortably on room air this a.m. Still with cough from RSV. Patient on IV antibiotics for urinary tract infection. Atrial fibrillation now control. Diarrhea negative for C. diff and other acute infectious bacteria. Time was given for questions, all answered in detail. - Objective Vital Signs & Weight: Vital Signs (12 hours) Temp Pulse Pulse Pulse Pulse Resp BP 08/27/19 11:30 98.4 F 85 18 08/27/19 10:55 108 H 105 H 120/71 08/27/19 09:18 98 59 L 109/57 L 08/27/19 08:41 99.3 F 87 18 08/27/19 08:00 08/27/19 03:47 98.8 F 102 H 14 BP BP BP BP Pulse Ox Pulse Ox Pulse Ox 08/27/19 11:30 101/67 92 L 08/27/19 10:55 97/65 97 92 L 08/27/19 09:18 107/58 L 91 L 95 08/27/19 08:41 120/71 92 L 08/27/19 08:00 93 L 08/27/19 03:47 108/60 94 L Weight Admit Weight 271 lb 6.4 oz Weight 271 lb 6.4 oz I&O: 08/26/19 08/27/19 08/28/19 06:59 06:59 06:59 Intake Total 1000 Balance 1000 Result Diagrams: 08/27/19 08:15 08/27/19 08:15 Radiology Reviewed by me: Yes Hospitalist ROS - Review of Systems All other systems reviewed; all pertinent +/- noted in HPI/Subj - Medication Medications: Active Medications Generic Name Dose Route Start Last Admin Trade Name Freq PRN Reason Stop Dose Admin Apixaban 5 mg 08/25/19 21:00 08/27/19 08:44 Eliquis PO 5 mg BID ANA PAULA Administration Aspirin 81 mg 08/26/19 09:00 08/27/19 08:44 Ecotrin PO 81 mg DAILY ANA PAULA Administration Atorvastatin Calcium 10 mg 08/25/19 21:00 08/26/19 19:53 Lipitor PO 10 mg HS ANA PAULA Administration Benzonatate 100 mg 08/25/19 18:39 08/27/19 00:05 Tessalon PO 100 mg Q4H PRN Administration Cough Coenzyme Q10 100 mg 08/25/19 21:00 08/26/19 19:52 Coenzyme Q10 PO 100 mg QPM ANA PAULA Administration Diltiazem HCl 120 mg 08/26/19 09:00 08/27/19 08:45 Cardizem Cd PO 120 mg DAILY ANA PAULA Administration Famotidine 20 mg 08/26/19 21:00 08/26/19 19:53 Pepcid SLOW IVP 20 mg QPM ANA PAULA Administration Ceftriaxone Sodium 2 gm/ 100 mls @ 200 mls/hr 08/25/19 20:00 08/26/19 20:00 Sodium Chloride IVPB 100 mls Q24HR ANA PAULA Administration Loperamide HCl 2 mg 08/25/19 13:53 08/26/19 19:53 Imodium PO 2 mg PRN PRN Administration Diarrhea/Loose Stools Metoprolol Succinate 50 mg 08/26/19 09:00 08/27/19 08:45 Toprol Xl PO 50 mg DAILY ANA PAULA Administration Sodium Chloride 10 ml 08/25/19 21:00 08/27/19 08:46 Flush - Normal Saline IVF 10 ml Q12HR ANA PAULA Administration - Exam General Appearance: NAD, awake alert Eye: PERRL ENT: normocephalic atraumatic, moist mucosa Neck: supple, symmetric, no lymphadenopathy Heart: no murmur, no gallops, irregular Respiratory: CTAB, no rales, no ronchi, wheezes (few faint) Gastrointestinal: soft, non-tender, no guarding, no rigidity Extremities: no clubbing, no edema Skin: no lesions Neurological: cranial nerve grossly intact, no focal deficits Musculoskeletal: generalized weakness Psychiatric: normal affect, normal behavior, A&O x 3 Hosp A/P (1) Severe sepsis Code(s): A41.9 - SEPSIS, UNSPECIFIED ORGANISM; R65.20 - SEVERE SEPSIS WITHOUT SEPTIC SHOCK Status: Acute (2) Atrial fibrillation with RVR Code(s): I48.91 - UNSPECIFIED ATRIAL FIBRILLATION Status: Acute (3) Cough Code(s): R05 - COUGH Status: Acute (4) Shortness of breath Code(s): R06.02 - SHORTNESS OF BREATH Status: Acute (5) UTI (urinary tract infection) Status: Acute (6) HTN (hypertension) Code(s): I10 - ESSENTIAL (PRIMARY) HYPERTENSION Status: Acute (7) GERD (gastroesophageal reflux disease) Code(s): K21.9 - GASTRO-ESOPHAGEAL REFLUX DISEASE WITHOUT ESOPHAGITIS Status: Acute (8) HLD (hyperlipidemia) Code(s): E78.5 - HYPERLIPIDEMIA, UNSPECIFIED Status: Acute (9) Paroxysmal atrial fibrillation Code(s): I48.0 - PAROXYSMAL ATRIAL FIBRILLATION Status: Acute - Plan Plan: medical unit with telemetry cardiology consultation, recommendations appreciated off diltiazem drip oral and coagulation with Eliquis severe sepsis diagnosed on admission urinary tract infection, failed outpatient medical therapy IV antibiotics urinary culture, de-escalate to culture and sensitivity as able breathing treatments as needed for wheezing and shortness of breath recent RSV infection diarrhea, stool studies negative C. diff negative CT scan of the abdomen and pelvis negative supplemental oxygen ass needed to maintain O2 saturation greater than 88% continue other home medications as able blood sugar control neckline blood pressure control G.I. prophylaxis DVT prophylaxis
--- NOTE | 2019-08-27 13:39 | PQF ---
DATE: 08-27-19 ATTN: DR. ERROL TRUONG Please exercise your independent, professional judgment in responding to the clarification form. Clinical indicators are provided on the bottom of this form for your review Please check appropriate box(s): [ XX ] Acute Renal Failure (ARF) / Acute Kidney Injury (MONSTER) [ ] Insignificant Lab Values [ ] Other diagnosis [ ] Unable to determine In addition, please specify: Present on Admission (POA): [ XX ] Yes [ ] No [ ] Unable to determine National Kidney Foundation Guidelines for CKD Staging Stage I Kidney damage with normal or increased GFR GFR > 90 Stage II Kidney damage with mildly decreased GFR GFR 60-89 Stage III Kidney damage with moderately decreased GFR GFR 30-59 Stage IV Kidney damage with severely decreased GFR GFR 16-29 Stage V Kidney failure GFR<15 ESRD End Stage Renal Disease On dialysis Acute Renal Failure/Acute Kidney Failure defined as: Increases in SCr by (>) 0.3 mg/dl within 48 hours OR- Increases in SCr by (>) 1.5 times baseline, known or presumed to have occurred within the prior 7 days OR- Urine volume < 0.5 ml/kg/hour for 6 hours (KDIGO supplement 2012 for RIFLE/LIZETTE criteria) For continuity of documentation, please document condition throughout progress notes and discharge summary. Thank You. CLINICAL INDICATORS - SIGNS / SYMPTOMS / LABS / RESULTS AND LOCATION IN MR: GFR: 08-25-19: 37 08-26-19: 45 08-27-19: 51 CREATININE: 08-25-19: 1.35 08-26-19: 1.16 08-27-19: 1.03 BUN: 08-25-19: 26 08-26-19: 29 08-27-19: 32 RISK FACTORS / RESULTS AND LOCATION IN MR: H&P: 08-25-19: HX GENERAL MALAISE, COUGH WITH PRODUCTIVE SPUTUM, DIARRHEA , AND URINARY FREQUENCY, HX OF A FIB, HTN, HYPERLIPIDEMIA, UTI TREATMENTS / RESULTS AND LOCATION IN MR: SERIES OF LABS 08-25-19 TO (This form is maintained as a part of the permanent medical record) 2014 [employer]. All Rights Reserved [email or web address] Office: [phone] [facility]ITAL[facility]
[2019-08-27] MEDS: cefTRIAXone\\ROCEPHIN 2 GM in Sodium Chloride 0.9% 100 ML IVPB SCH (20:27)
[2019-08-27] MEDS: Ubidecarenone 50 MG CAP PO SCH (20:28)
[2019-08-27] MEDS: Atorvastatin Calcium 10 MG TAB PO SCH (20:28)
[2019-08-27] MEDS: Famotidine/PF 20 mg/2ml Vial SLOW IVP SCH (20:28)
[2019-08-28] MEDS: Benzonatate 100 MG CAP PO PRN ×2 (03:16→20:03)
[2019-08-28] MEDS: Aspirin 81 mg Enteric Coated Tablet PO SCH (07:53)
[2019-08-28] MEDS: Apixaban 5 MG TAB PO SCH ×2 (07:53→20:02)
[2019-08-28 08:15] LABS: Hemoglobin 14.5 g/dL (12.0-16.0); Platelet Count 140 thou/uL (130-400)
--- NOTE | 2019-08-28 12:18 | PDOC.HOSPP ---
- Subjective Encounter Date: 08/28/19 Encounter Time: 12:18 Subjective: Feeling 80% back to normal. Much improved. Still has the cough - Objective Vital Signs & Weight: Vital Signs (12 hours) Temp Pulse Resp BP Pulse Ox 08/28/19 07:46 97.4 F L 83 19 120/69 96 08/28/19 03:59 97.8 F 81 18 116/62 93 L Weight Admit Weight 271 lb 6.4 oz Weight 271 lb 6.4 oz I&O: 08/27/19 08/28/19 08/29/19 06:59 06:59 06:59 Intake Total 1000 1260 Balance 1000 1260 Result Diagrams: 08/28/19 07:37 08/28/19 07:37 Hospitalist ROS - Medication Medications: Active Medications Generic Name Dose Route Start Last Admin Trade Name Freq PRN Reason Stop Dose Admin Apixaban 5 mg 08/25/19 21:00 08/28/19 07:53 Eliquis PO 5 mg BID ANA PAULA Administration Aspirin 81 mg 08/26/19 09:00 08/28/19 07:53 Ecotrin PO 81 mg DAILY ANA PAULA Administration Atorvastatin Calcium 10 mg 08/25/19 21:00 08/27/19 20:28 Lipitor PO 10 mg HS ANA PAULA Administration Benzonatate 100 mg 08/25/19 18:39 08/28/19 03:16 Tessalon PO 100 mg Q4H PRN Administration Cough Coenzyme Q10 100 mg 08/25/19 21:00 08/27/19 20:28 Coenzyme Q10 PO 100 mg QPM ANA PAULA Administration Diltiazem HCl 120 mg 08/26/19 09:00 08/28/19 07:53 Cardizem Cd PO 120 mg DAILY ANA PAULA Administration Famotidine 20 mg 08/26/19 21:00 08/27/19 20:28 Pepcid SLOW IVP 20 mg QPM ANA PAULA Administration Ceftriaxone Sodium 2 gm/ 100 mls @ 200 mls/hr 08/25/19 20:00 08/27/19 20:27 Sodium Chloride IVPB 100 mls Q24HR ANA PAULA Administration Loperamide HCl 2 mg 08/25/19 13:53 08/26/19 19:53 Imodium PO 2 mg PRN PRN Administration Diarrhea/Loose Stools Metoprolol Succinate 50 mg 08/26/19 09:00 08/28/19 07:53 Toprol Xl PO 50 mg DAILY ANA PAULA Administration Sodium Chloride 10 ml 08/25/19 21:00 08/28/19 07:55 Flush - Normal Saline IVF 10 ml Q12HR ANA PAULA Administration Hosp A/P (1) Sepsis Code(s): A41.9 - SEPSIS, UNSPECIFIED ORGANISM Status: Acute (2) Hyponatremia Code(s): E87.1 - HYPO-OSMOLALITY AND HYPONATREMIA Status: Acute (3) Acute on chronic kidney failure Code(s): N17.9 - ACUTE KIDNEY FAILURE, UNSPECIFIED; N18.9 - CHRONIC KIDNEY DISEASE, UNSPECIFIED Status: Acute (4) CKD (chronic kidney disease), stage III Code(s): N18.3 - CHRONIC KIDNEY DISEASE, STAGE 3 (MODERATE) Status: Acute (5) Atrial fibrillation with RVR Code(s): I48.91 - UNSPECIFIED ATRIAL FIBRILLATION Status: Acute (6) GERD (gastroesophageal reflux disease) Code(s): K21.9 - GASTRO-ESOPHAGEAL REFLUX DISEASE WITHOUT ESOPHAGITIS Status: Acute (7) HLD (hyperlipidemia) Code(s): E78.5 - HYPERLIPIDEMIA, UNSPECIFIED Status: Acute (8) HTN (hypertension) Code(s): I10 - ESSENTIAL (PRIMARY) HYPERTENSION Status: Acute (9) Paroxysmal atrial fibrillation Code(s): I48.0 - PAROXYSMAL ATRIAL FIBRILLATION Status: Acute (10) UTI (urinary tract infection) Status: Acute - Plan Continue abx and follow up on UCx. If there are po options, can likely DC as soon as we know that. Given the recurrence and readmission, will await that result. If it takes a while, she can go to the floor.
--- NOTE | 2019-08-28 16:32 | PDOC.CPN ---
- Subjective Date: 08/28/19 Time: 16:31 Interval history: No new issues. HR controlled. - Review of Systems General: denies: fever/chills, weight/appetite/sleep changes, night sweats, fatigue Respiratory: reports: cough. denies: congestion, shortness of breath, exercise intolerance Cardiovascular: denies: chest pain, palpitation, edema, paroxysmal nocturnal dyspnea, orthopnea Gastrointestinal: denies: nausea, vomiting, diarrhea, constipation, abd pain, GI bleeding Musculoskeletal: denies: pain, tenderness, stiffness, swelling, arthritis/ arthralgias Neurological: denies: numbness, syncope, seizure, weakness - Objective Allergies/Adverse Reactions: Allergies Allergy/AdvReac Type Severity Reaction Status Date / Time No Known Allergies Allergy Verified 03/05/18 15:26 Visit Medications: Current Medications Acetaminophen (Tylenol) 650 mg PO Q4H PRN PRN Reason: Headache/Fever/Mild Pain (1-3) Hydrocodone Bitart/Acetaminophen (Deville 5/325) 1 tab PO Q4H PRN PRN Reason: Moderate Pain (4-6) Hydrocodone Bitart/Acetaminophen (Deville 7.5/325) 1 tab PO Q4H PRN PRN Reason: Moderate to Severe Pain (6-10) Albuterol/Ipratropium (Duoneb) 3 ml NEB X8LT-DS PRN PRN Reason: SOB &/or Wheezing Apixaban (Eliquis) 5 mg PO BID [facility] Last Admin: 08/28/19 07:53 Dose: 5 mg Aspirin (Ecotrin) 81 mg PO DAILY [facility] Last Admin: 08/28/19 07:53 Dose: 81 mg Atorvastatin Calcium (Lipitor) 10 mg PO HS [facility] Last Admin: 08/27/19 20:28 Dose: 10 mg Benzonatate (Tessalon) 100 mg PO Q4H PRN PRN Reason: Cough Last Admin: 08/28/19 03:16 Dose: 100 mg Bisacodyl (Dulcolax) 10 mg PO DAILYPRN PRN PRN Reason: Constipation Calcium Carbonate (Tums) 1,000 mg PO Q4H PRN PRN Reason: Heartburn or Indigestion Coenzyme Q10 (Coenzyme Q10) 100 mg PO QPM [facility] Last Admin: 08/27/19 20:28 Dose: 100 mg Diltiazem HCl (Cardizem Cd) 120 mg PO DAILY [facility] Last Admin: 08/28/19 07:53 Dose: 120 mg Diphenhydramine HCl (Benadryl) 25 mg PO Q6H PRN PRN Reason: Itching & Insomnia Docusate Sodium (Colace) 100 mg PO BIDPRN PRN PRN Reason: Constipation Famotidine (Pepcid) 20 mg SLOW IVP QPM [facility] Last Admin: 08/27/19 20:28 Dose: 20 mg Ceftriaxone Sodium 2 gm/ (Sodium Chloride) 100 mls @ 200 mls/hr IVPB Q24HR [facility] Last Admin: 08/27/19 20:27 Dose: 100 mls Labetalol HCl (Normodyne) 10 mg SLOW IVP Q4H PRN PRN Reason: SBP Greater Than 180 Loperamide HCl (Imodium) 2 mg PO PRN PRN PRN Reason: Diarrhea/Loose Stools Last Admin: 08/26/19 19:53 Dose: 2 mg Melatonin (Melatonin) 3 mg PO HS PRN PRN Reason: Insomnia Metoprolol Succinate (Toprol Xl) 50 mg PO DAILY [facility] Last Admin: 08/28/19 07:53 Dose: 50 mg Ondansetron HCl (Zofran Odt) 4 mg PO Q6H PRN PRN Reason: Nausea/Vomiting Ondansetron HCl (Zofran) 4 mg IVP Q6H PRN PRN Reason: Nausea/Vomiting Senna/Docusate Sodium (Senokot S) 2 tab PO BIDPRN PRN PRN Reason: Constipation Sodium Chloride (Flush - Normal Saline) 10 ml IVF Q12HR [facility] Last Admin: 08/28/19 07:55 Dose: 10 ml Sodium Chloride (Flush - Normal Saline) 10 ml IVF PRN PRN PRN Reason: Saline Flush Vital Signs & Weight: Vital Signs Temp Pulse Pulse Resp BP BP Pulse Ox 08/28/19 15:16 102 H 156/84 H 08/28/19 12:00 98.3 F 86 14 119/65 94 L 08/28/19 07:46 97.4 F L 83 19 120/69 96 Admit Weight 271 lb 6.4 oz Weight 271 lb 6.4 oz - Physical Exam General: alert & oriented x3 HEENT: mucus membranes moist Neck: supple neck Cardiac: irregularly regular Lungs: normal breath sounds Neuro: grossly intact Abdomen: active bowel sounds Extremities: no edema Skin: clear Musculoskeletal: no pain - Labs Result Diagrams: 08/28/19 07:37 08/28/19 07:37 Troponin/CKMB Troponin I 0.028 ng/mL (< 0.028) 08/25/19 20:25 - Telemetry Supraventricular conduction: atrial fibrillation - Assessment/Plan Assessment/Plan: 1. Severe sepsis 2/2 RSV and UTI 2. Chronic Afib 3. HTN 4. HLD 5. Diarrhea - Cdiff negative PLAN: - Continue rate control with current meds - Eliquis for stroke prophylaxis.
[2019-08-28] MEDS: cefTRIAXone\\ROCEPHIN 2 GM in Sodium Chloride 0.9% 100 ML IVPB SCH (20:01)
[2019-08-28] MEDS: Atorvastatin Calcium 10 MG TAB PO SCH (20:02)
[2019-08-28] MEDS: Ubidecarenone 50 MG CAP PO SCH (20:03)
[2019-08-28] MEDS ORDERED: Famotidine 20 MG TAB PO SCH (21:00)
[2019-08-29] MEDS: Apixaban 5 MG TAB PO SCH (07:56)
[2019-08-29] MEDS: Aspirin 81 mg Enteric Coated Tablet PO SCH (07:56)
[2019-08-29 11:20] VITALS: TEMP 97.5
[2019-08-29 16:42] VITALS: BP 126/77
--- NOTE | 2019-08-30 11:09 | DIS ---
DATE OF ADMISSION: 08/25/2019 DATE OF DISCHARGE: 08/29/2019 DISCHARGE DIAGNOSES: 1. Sepsis secondary to urinary tract infection. 2. Urinary tract infection with corynebacterium. 3. Diarrheal illness. 4. Recent diagnosis of respiratory syncytial virus. 5. Atrial fibrillation with rapid ventricular response. 6. Acute on chronic kidney disease. 7. Chronic kidney disease stage 3. 8. Elevated troponin of no clinical significance. 9. Mild hyponatremia. HISTORY OF PRESENT ILLNESS: This patient is 84-year-old female who presented via the emergency department. The patient had recently been admitted to a hospital in [place] where she had been diagnosed with respiratory syncytial virus and urinary tract infection. She was discharged and came home. She was given antibiotics, but apparently had forgotten to take these medications and she presented back to the hospital for this admission with multiple complaints including generalized malaise, cough, diarrhea, and urinary frequency. The patient reported the diarrhea had preceded her admission to the hospital in [place]. She was noted to be in atrial fibrillation with rapid ventricular response, varying rates and was placed on a diltiazem drip. HOSPITAL COURSE: The patient was admitted to the hospital. Her initial white count was 18.2, and with her tachycardia and evidence of infection, was felt to be consistent with sepsis. She was started on broad-spectrum antibiotics for what appeared to be urinary tract infection. Cultures they ultimately bore out with presumptive corynebacterium with no further details elucidated. Stool studies were negative. Flu screen was negative and she was felt appropriate for conversion over to p.o. antibiotics. The patient's diarrhea significantly improved during her hospitalization and was felt to likely be due to the underlying infections. The patient's atrial fibrillation had good rate control. She was seen by Cardiology, had diltiazem converted over to an oral regimen and the patient remained generally asymptomatic. By the day of discharge, the patient was feeling quite well, walking down the hallways with no difficulties. PHYSICAL EXAMINATION: VITAL SIGNS: Temperature is 97.5, pulse 90, respirations 15, O2 saturation 94% on room air, BP 126/77. GENERAL: She is awake and alert. HEART: Irregular without murmurs. LUNGS: Clear. ABDOMEN: Benign. DISPOSITION: The patient is discharged to home in good condition. DISCHARGE MEDICATIONS: She will be on 1. Metoprolol 50 mg daily. 2. Levofloxacin 500 mg daily. 3. Florastor 250 mg daily. She will continue with her 1. Co-Q10 200 mg at bedtime. 2. Lutein 20 mg daily. 3. Aspirin 81 mg daily. 4. Eliquis 5 mg b.i.d. 5. Benzonatate p.r.n. 6. Diltiazem ER 120 mg daily. 7. Vitamin C 500 daily. 8. Atorvastatin 40 daily. She is to discontinue Keflex and the lower dose metoprolol. FOLLOWUP: She is to follow up with her primary care provider, Ngozi Farrar in [place] and Dr. Benítez in 2 to 3 weeks. She can return to the hospital at anytime should she have the need to do so. The patient did have echocardiogram performed while in the hospital, which revealed an EF of 55% to 60%, otherwise generally normal echocardiogram and a CT abdomen and pelvis revealing no renal or ureteral calculi, bilateral renal cyst and hepatic cyst, left-sided indirect hernia containing non-obstructed loop of sigmoid colon. TIME SPENT: Total time in discharge activity was 31 minutes. Job ID: [id number]
--- NOTE | 2019-09-01 05:44 | PQF ---
[facility] Cardio Clinician Crystal Reports Winform ViewerCÉSARTRINAKHLOE DAVID R MD [id number] [id number] [id number] CLINICAL DOCUMENTATION CLARIFICATION FORM: POST DISCHARGE Addendum to original discharge summary date: ____ Late entry note date: __ DATE: 09/01/2019 ATTN:LETICIA PALACIOS MD Please exercise your independent, professional judgment in responding to the clarification form. Clinical indicators are provided on the bottom of this form for your review Please check appropriate box(s) to clarify if the following diagnosis has been ruled in or ruled out: Pneumonia (CDI/Coding list diagnosis here) [ ] Ruled in diagnosis [ ] Continue to treat [ ] Resolved [ x ] Ruled out diagnosis [ ] Cannot rule out diagnosis [ ] Other diagnosis [ ] Unable to determine In addition, please specify: Present on Admission (POA): [ ] Yes [ ] No [ ] Unable to determine For continuity of documentation, please document condition throughout progress notes and discharge summary. Thank You. CLINICAL INDICATORS - SIGNS / SYMPTOMS / LABS Possible Pneumonia - Documented in Consult note on 08/27 by Jackelin Damon Generalized weakness which most likely is due to overwhelming infection - Documented in Consult note on 08/27 by Jackelin Damon RSV for which she is being treated here in the hospital - Documented in Consult note on 08/27 by Jackelin Damon she developed respiratory problems with allergies and then develops worsening of situation - Documented in Consult note on 08/27 by Jackelin Damon when she usually ends up in some type upper respiratory infection or even lower tract infection from possible pneumonia - Documented in Consult note on 08/27 by Jackelin Kraft RISK FACTORS Severe Sepsis - Documented in H&P on 08/25 by Alo Slaughter Recent RSV infection - Documented in H&P on 08/25 by Alo Slaughter Afib HTN [facility] Clinician [employer] Win[employer] View[employer] TREATMENTS Start IV antibiotics - Documented in H&P on 08/25 by Alo Beltran IVPB - Medication report (This form is maintained as a part of the permanent medical record) 2014 [employer]. All Rights Reserved [email or web address] [not provided] MTDD
--- NOTE | 2019-09-04 09:32 | EKG ---
Test Reason : Blood Pressure : / mmHG Vent. Rate : 114 BPM Atrial Rate : 178 BPM P-R Int : 000 ms QRS Dur : 086 ms QT Int : 358 ms P-R-T Axes : 000 -17 039 degrees QTc Int : 493 ms Atrial fibrillation with rapid ventricular response Inferior infarct , age undetermined Abnormal ECG Confirmed by MALLORY TUBBS D.O. ([id number]), editorial writer EASTON YOUNG ([id number]) on 09/04/2019 9:32:32 AM Referred By: Confirmed By:MALLORY TUBBS D.O.
== END 2019-08-29 16:15 | disposition home or self-care (01) | DRG 872 ==
LOC: ERS 11:34 → ERHOLD 14:41 → 2NO 20:25
PROVIDERS: ADMIT Internal Medicine; ATTEND Internal Medicine
DX: A41.9 Sepsis, unspecified organism (principal); N39.0 Urinary tract infection, site not specified; N17.9 Acute kidney failure, unspecified; E87.1 Hypo-osmolality and hyponatremia; R65.20 Severe sepsis without septic shock; E78.5 Hyperlipidemia, unspecified; M19.91 Primary osteoarthritis, unspecified site; K21.9 Gastro-esophageal reflux disease without esophagitis; I48.0 Paroxysmal atrial fibrillation; Z96.653 Presence of artificial knee joint, bilateral; N18.3 Chronic kidney disease, stage 3 (moderate); I12.9 Hypertensive chronic kidney disease with stage 1 through stage 4 chronic kidney disease, or unspecified chronic kidney disease; B96.89 Other specified bacterial agents as the cause of diseases classified elsewhere; Z90.49 Acquired absence of other specified parts of digestive tract; Z79.899 Other long term (current) drug therapy
CPT/HCPCS: 36415; 71045; 74176; 80048; 80053; 81003; 81015; 82565; 84443; 84484; 85014; 85018; 85025; 85049; 85610; 85730; 87045; 87046; 87086; 87324; 87427; 87449; 87804; 93005; 93306; 96361; 96365; 96366; J0696; J3490; S0028